=== PATIENT | male | born 1995 | race Caucasian/White ===

== ENCOUNTER 2024-02-02 03:02 | Emergency (ER) | payer SELFPAY ==
[~2024-02-02] VITALS: Ht 182.9 cm; Wt 77.0 kg
[2024-02-02 03:16] VITALS: TEMP 98.6; O2SAT 97
[2024-02-02] MEDS: TETANUS, DIPHTHERIA, PERTUSSIS VAC/PF 0.5ML (>10YR OLD) IM ONE (04:45)
[2024-02-02] MEDS: LIDOCAINE HCL/PF 1% 10 MG/ML 5ML VIAL INFIL ONE (04:45)
[2024-02-02] MEDS: BACITRACIN ZINC OINT UDPKT TOP ONE (04:45)
[2024-02-02 05:08] VITALS: BP 122/85; PULSE 73; RESP 16; O2SAT 100
== END 2024-02-02 05:08 | disposition home or self-care (01) ==
LOC: ER 03:34
DX: S01.511A Laceration without foreign body of lip, initial encounter (principal); R51.9 Headache, unspecified; W22.01XA Walked into wall, initial encounter; Y93.89 Activity, other specified; Y92.89 Other specified places as the place of occurrence of the external cause; Y99.8 Other external cause status
CPT/HCPCS: 40650; 99284